=== PATIENT | male | born 1990 | race Caucasian/White ===

== ENCOUNTER 2019-04-16 14:42 | Outpatient (CLI) | payer MEDICAID ==
[2019-04-16 18:20] LABS: T4 (THYROXINE) 6.15 ug/dL (6.09-12.23)
[2019-04-16 18:24] LABS: THYROID STIMULATING HORMONE 0.81 uIU/mL (0.34-5.60)
== END 2019-04-16 14:43 | disposition home or self-care (01) ==
LOC: LAB.F 14:42
PROVIDERS: ATTEND Internal Medicine
DX: E03.9 Hypothyroidism, unspecified (principal)
CPT/HCPCS: 36415; 84436; 84439; 84443; 84481